=== PATIENT | female | born 1960 | race Caucasian/White ===

== ENCOUNTER 2019-02-01 04:52 | Emergency (ER) | payer BC ==
[2019-02-01 04:57] VITALS: BP 146/100
[2019-02-01] MEDS ORDERED: ALBUTEROL INH PREPACK MDI TAKEHOME ONE (05:12)
--- NOTE | 2019-02-01 05:13 | EDPHY ---
H & P Stated Complaint: SOB X 1 DAY Time Seen by Provider: 02/01/19 05:05 HPI/ROS: Chief Complaint: Shortness of breath HPI: 58-year-old woman with no past medical history. She is visiting from the [facility]. Her parents level blood sugar of. She is visiting her father who has cancer. Patient states that she described yesterday. She was doing some yd work, raking leaves in cleaning up the yd. She did inhale some dust and pollen. She has been having worsening congestion and some shortness of breath. She states she is having a difficult time sleeping. Does have a history of having some trouble come in altitude in the past. He did take Claritin with no relief. She came down here for further evaluation. She says that [place] she is feeling better. Feels like her chest is loosened up. Does not have a history of some any past respiratory issues. No fevers or chills. Cough has been sparse and nonproductive. ROS: 10 systems were reviewed and were negative except those elements noted in the HPI. PMH: Denies Social History: Positive smoking, no alcohol, no recreational drug use Family History: non-contributory Physical Exam: Gen: Awake, Alert, No Distress HEENT: Nose: no rhinorrhea Eyes: PERRLA, EOMI Mouth: Moist mucosa Neck: Supple, no JVD Chest: Mild diffuse expiratory wheeze, no focal rales or rhonchi Heart: S1, S2 normal, no murmur Abd: Soft, non-tender, no guarding Back: no CVA tenderness, no midline tenderness Ext: no edema, non-tender Skin: no rash Neuro: CN II-XII intact, Sensation grossly intact, Strength 5/5 in bilateral upper and lower extremities - Personal History Current Tetanus Diphtheria and Acellular Pertussis (TDAP): Yes - Medical/Surgical History Hx Asthma: No Hx Chronic Respiratory Disease: No Hx Diabetes: No Hx Cardiac Disease: No Hx Renal Disease: No Hx Cirrhosis: No Hx Alcoholism: No Hx HIV/AIDS: No Hx Splenectomy or Spleen Trauma: No Other PMH: DENIES - Social History Smoking Status: Heavy smoker Constitutional: Initial Vital Signs Temperature (C) 36.7 C 02/01/19 04:54 Heart Rate 81 02/01/19 04:54 Respiratory Rate 16 02/01/19 04:54 Blood Pressure 146/100 H 02/01/19 04:54 O2 Sat (%) 93 02/01/19 04:54 O2 Delivery Mode Room Air Allergies/Adverse Reactions: Penicillins Allergy (Verified 02/01/19 04:56) Home Medications: Medication Instructions Recorded NK [No Known Home Meds] 02/01/19 Medical Decision Making ED Course/Re-evaluation: 58-year-old woman with some shortness of breath after coming to altitude and raking leaves. She did have some wheezing which is now improved after albuterol MDI. Will discharge with MDI, advised her to take it easy at altitude. If she continues to have symptoms she should be staying in [place] for few days before she goes back up and spent significant time upon sugar love. Will give her referral to local follow-up, return for any concerns. She may use the albuterol inhaler 2 puffs every 2-4 hours as needed for cough or wheeze. - Data Points Medications Given: Discontinued Medications Albuterol Sulfate (Proventil Inh Prepack) 1 mdi GLADIS FREDERICK ONE Stop: 02/01/19 05:13 Last Admin: 02/01/19 05:16 Dose: 1 mdi Departure - Departure Disposition: Home, Routine, Self-Care Clinical Impression: Reactive airway disease, Altitude sickness Condition: Good Instructions: Mountain Sickness (ED), Reactive Airways Disease (ED), Albuterol (By breathing) Additional Instructions: You may use the albuterol inhaler 2 puffs every 2-4 hours as needed for cough or wheeze. Follow up with primary care physician in 3-4 days if symptoms are not improving. If you find her breathing gets worse when you go up to altitude I recommend you stay in [place] for a few days to acclimate. Referrals: Pillo Pendleton DO [Doctor of Osteopathy] - As per Instructions
== END 2019-02-01 05:37 | disposition home or self-care (01) ==
DX: R06.02 Shortness of breath (principal); F17.200 Nicotine dependence, unspecified, uncomplicated